=== PATIENT | male | born 1960 | race Caucasian/White ===

== ENCOUNTER 2016-08-02 12:05 | Inpatient (IN) | payer OTHER ==
[2016-08-02 13:52] VITALS: BMI 26.7
--- NOTE | 2016-08-02 14:36 | HP ---
COWS - Scale Resting Pulse: 1= [place] 81-100 Sweatin= Streaming Sweat Restless Observation: 1= Difficult to Sit Still Pupil Size: 1= Pupils >than Normal Bone or Joint Aches: 1= Mild Discomfort Runny Nose/ Eye Tearin= Nasal Congestion GI Upset > 30mins: 2= Nausea/Diarrhea Tremor Observation: 1= Tremor [place], Not Seen Yawning Observation: 1= 1-2x During Session Anxiety or Irritability: 2=Irritable/Anxious Goose Flesh Skin: 0=Smooth Skin COWS Score: 15 Admission ROS BHS - HPI Chief Complaint: I'm at the end of my rope I need help to change . Allergies/Adverse Reactions: Allergies Allergy/AdvReac Type Severity Reaction Status Date / Time No Known Allergies Allergy Verified 05/28/15 12:49 History of Present Illness: 56 y/o m pt with a h/o heroin dep. seeking detox. Exam Limitations: No Limitations - Ebola screening Have you traveled outside of the country in the last 21 days: No Have you had contact with anyone from an Ebola affected area: No Have you been sick,other than usual withdrawal symptoms: No Do you have a fever: No - Review of Systems Constitutional: Malaise, Night Sweats, Changes in sleep EENT: reports: Nose Congestion Respiratory: reports: No Symptoms reported Cardiac: reports: Chest Tightness GI: reports: Nausea : reports: Frequency Musculoskeletal: reports: Muscle Pain Integumentary: reports: No Symptoms Reported Neuro: reports: No Symptoms reported Hematology: reports: No Symptoms Reported Psychiatric: reports: Anxious, Depressed Other Systems: Reviewed and Negative Patient History - Patient Medical History Hx Anemia: No Hx Asthma: No Hx Chronic Obstructive Pulmonary Disease (COPD): No Hx Cancer: No Hx Cardiac Disorders: No Hx Congestive Heart Failure: No Hx Hypertension: No Hx Hypercholesterolemia: No Hx Pacemaker: No HX Cerebrovascular Accident: No Hx Seizures: No Hx Dementia: No Hx Diabetes: No Hx Gastrointestinal Disorders: No Hx Liver Disease: No Hx Genitourinary Disorders: No Hx Sexually Transmitted Disorders: No Hx Renal Disease (ESRD): No Hx Thyroid Disease: No Hx Human Immunodeficiency Virus (HIV): No Hx Hepatitis C: No Hx Depression: No Hx Suicide Attempt: No Hx Bipolar Disorder: No Hx Schizophrenia: No - Patient Surgical History Past Surgical History: No Hx Neurologic Surgery: No Hx Cataract Extraction: No Hx Cardiac Surgery: No Hx Lung Surgery: No Hx Breast Surgery: No Hx Breast Biopsy: No Hx Abdominal Surgery: No Hx Appendectomy: No Hx Cholecystectomy: No Hx Genitourinary Surgery: No Hx Section: No Hx Orthopedic Surgery: No Anesthesia Reaction: No - PPD History Previous Implant?: No Documented Results: Negative w/o proof Date: 05/30/15 PPD to be Administered?: Yes - Reproductive History Patient is a Female of Child Bearing Age (11 -55 yrs old): No - Smoking Cessation Smoking history: Current every day smoker Have you smoked in the past 12 months: Yes Aproximately how many cigarettes per day: 10 Cigars Per Day: 0 Hx Chewing Tobacco Use: No Initiated information on smoking cessation: Yes 'Breaking Loose' booklet given: 08/02/16 - Substance & Tx. History Hx Alcohol Use: No Hx Substance Use: Yes Substance Use Type: Heroin Hx Substance Use Treatment: Yes - Substances Abused Heroin Route: Inhalation Frequency: Daily Amount used: 7 bags/d Age of first use: 14 Date of Last Use: 08/02/16 Family Disease History - Family Disease History Family Disease History: Diabetes: Mother, [place]: Sister (BREAST), Other: Father ( RECOVERING ALCOHOLIC) Admission Physical Exam BHS - Vital Signs Vital Signs: Vital Signs - 24 hr 08/02/16 13:46 Temperature 98.2 F Pulse Rate 89 Respiratory 20 Rate Blood Pressure 143/78 56 y/o m pt aox3 anxious but cooperative with exam , - Physical General Appearance: Yes: Appropriately Dressed, Anxious HEENTM: Yes: EOMI, Normocephalic, LUCIA, Muffled/Hoarse Voice Respiratory: Yes: Chest Non-Tender, Lungs Clear, Normal Breath Sounds, No Respiratory Distress Neck: Yes: Supple, Trachea in good position Breast: Yes: Within Normal Limits Cardiology: Yes: Regular Rhythm, Regular Rate, S1, S2 Abdominal: Yes: Non Tender, Flat, Soft, Increased Bowel Sounds Genitourinary: Yes: Frequency Back: Yes: Within Normal Limits Musculoskeletal: Yes: Muscle Pain Extremities: Yes: Tremors Neurological: 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 NML intact, Fully Oriented, Alert, Motor Strength 5/5, Normal Response Integumentary: Yes: Moist Lymphatic: Yes: Within Normal Limits - Diagnostic (1) Opioid dependence with withdrawal Current Visit: Yes Status: Chronic (2) Nicotine dependence unspecified, with withdrawal Current Visit: Yes Status: Chronic Qualifiers: Nicotine product type: cigarettes Qualified Code(s): F17.213 - Nicotine dependence, cigarettes, with withdrawal Cleared for Admission [facility] - Detox or Rehab [facility] Level of Care: Medically Managed Detox Regimen/Protocol: Methadone [facility] Breath Alcohol Content Breath Alcohol Content: 0 Urine Drug Screen - Results Drug Screen Negative: No Urine Drug Screen Results: OPI-Opiates
[2016-08-02] MEDS ORDERED: LOPERAMIDE HCL 2 MG CAPSULE PO PRN (14:50)
[2016-08-02] MEDS ORDERED: MAG HYDROX/AL HYDROX/SIMETH 30 ML UNIT-DOSE CUP PO PRN (14:50)
[2016-08-02] MEDS ORDERED: MENTHOL/PHENOL 1 EACH UD MM PRN (14:50)
[2016-08-02] MEDS ORDERED: NICOTINE POLACRILEX 4 MG GUM BC PRN (14:50)
[2016-08-02] MEDS ORDERED: MAGNESIUM HYDROX 2400MG/30ML ORAL SUSPENSION 30 ML CUP PO PRN (14:50)
[2016-08-02] MEDS ORDERED: P-EPHED 60MG/TRIPROLIDI 2.5MG TABLET PO PRN (14:50)
[2016-08-02] MEDS ORDERED: guaiFENesin/D-METHORPHAN HB 10 ML UNIT-DOSE CUPS PO PRN (14:50)
[2016-08-02] MEDS ORDERED: MAGNESIUM CITRATE 300 ML BOTTLE PO PRN (14:50)
[2016-08-02] MEDS ORDERED: diphenhydrAMINE HCL 50 MG CAPSULE PO PRN (14:50)
[2016-08-02] MEDS ORDERED: METHADONE HCL 10 MG TABLET (FOR DETOX USE ONLY) PO ONE ×2 (17:00→23:00)
[2016-08-02] MEDS: diazePAM 5 MG TABLET PO PRN ×2 (17:47→22:36)
[2016-08-02] MEDS: ACETAMINOPHEN 325 MG TABLET (FP) PO PRN (20:59)
[2016-08-02] MEDS: THIAMINE HCL 100 MG TABLET (FP) PO SCH (22:33)
[2016-08-03] MEDS ORDERED: METHADONE HCL 10 MG TABLET (FOR DETOX USE ONLY) PO ONE (10:00)
[2016-08-03] MEDS: diazePAM 5 MG TABLET PO PRN ×2 (10:15→22:33)
[2016-08-03] MEDS: PRENATAL VITAMINS W/ FOLIC ACID TABLET (FP) PO SCH (10:15)
[2016-08-03] MEDS: NICOTINE 21 MG/24 HOURS TOPICAL PATCH TD SCH (10:15)
[2016-08-03 11:21] LABS: MCH 30.6 pg (25.7-33.7); MCHC 33.4 g/dl (32.0-35.9); MEAN CELL VOLUME 91.5 fl (80-96); MEAN PLT VOLUME 8.9 fl (7.5-11.1); PLATELET COUNT 352 K/MM3 (134-434); RDW 13.6 % (11.9-15.9); WHITE BLOOD COUNT 8.1 K/mm3 (4.0-10.0)
[2016-08-03 11:36] LABS: ANION GAP 5 (8-16); CO2 32 mmol/L (21-32); GLUCOSE,RANDOM 80 mg/dL (74-106); SGOT/AST 17 U/L (15-37); SGPT/ALT 22 U/L (12-78)
[2016-08-03 11:38] LABS: ALK PHOS 91 U/L (45-117); BILIRUBIN,TOTAL 0.3 mg/dL (0.2-1.0); CALCIUM 9.1 mg/dL (8.5-10.1); CREATININE 0.8 mg/dL (0.7-1.3); TOT PROT 7.2 g/dl (6.4-8.2)
--- NOTE | 2016-08-03 11:40 | PN ---
S COWS - Scale Resting Pulse: 1= [place] 81-100 Sweatin=Flushed/Facial Moisture Restless Observation: 3= Extraneous Movement Pupil Size: 1= Pupils >than Normal Bone or Joint Aches: 2= Severe Diffuse Aches Runny Nose/ Eye Tearin= Runny Nose/Eyes GI Upset > 30mins: 2= Nausea/Diarrhea Tremor Observation of Outstretched Hands: 2= Slight Tremor Visible Yawning Observation: 1= 1-2x During Session Anxiety or Irritability: 2=Irritable/Anxious Goose Flesh Skin: 0=Smooth Skin COWS Score: 18 BHS Progress Note (SOAP) Subjective: ALERT,IRRITABLE,ANXIOUS,PAIN IN THE BODY,BACK,TREMOR, Objective: 08/03/16 11:39 Vital Signs Temperature 96.8 F L 08/03/16 09:50 Pulse Rate 94 H 08/03/16 09:50 Respiratory Rate 20 08/03/16 09:50 Blood Pressure 137/86 08/03/16 09:50 O2 Sat by Pulse Oximetry (%) EKG NSR Laboratory Last Values WBC 8.1 K/mm3 (4.0-10.0) 08/03/16 06:00 RBC 4.56 M/mm3 (4.00-5.60) 08/03/16 06:00 Hgb 13.9 GM/dL (11.7-16.9) 08/03/16 06:00 Hct 41.8 % (35.4-49) 08/03/16 06:00 MCV 91.5 fl (80-96) 08/03/16 06:00 MCHC 33.4 g/dl (32.0-35.9) 08/03/16 06:00 RDW 13.6 % (11.9-15.9) 08/03/16 06:00 Plt Count 352 K/MM3 (134-434) 08/03/16 06:00 MPV 8.9 fl (7.5-11.1) 08/03/16 06:00 LABS PENDING Assessment: 08/03/16 11:40 WITHDRAWAL SYMPTOM Plan: CONTINUE DETOX
--- NOTE | 2016-08-03 12:17 | CONSULT ---
[facility] Psychiatric Consult - Data Date of interview: 08/03/16 Admission source: [facility] Identifying data: [facility] to [facility] for this 56 y/o male seeking detox treatment on for heroin dependence.Patient is single without children,domiciled,unemployed and reportedly deprived of any source of income. Substance Abuse History: - Smoking Cessation. Smoking history: Current every day smoker. Have you smoked in the past 12 months: Yes. Aproximately how many cigarettes per day: 10. Cigars Per Day: 0. Hx Chewing Tobacco Use: No. Initiated information on smoking cessation: Yes. 'Breaking Loose' booklet given : 08/02/16. - Substance & Tx. History. Hx Alcohol Use: No. Hx Substance Use: Yes. Substance Use Type: Heroin. Hx Substance Use Treatment: Yes. - Substances Abused. Heroin. Route: Inhalation. Frequency: Daily. Amount used: 7 bags/d. Age of first use: 14. Date of Last Use: 08/02/16. Confirmed by patient. Medical History: Patient denies medical problems. Psychiatric History: Patient denies. Physical/Sexual Abuse/Trauma History: No reported history of sexual abuse. Mental Status Exam - Mental Status Exam Alert and Oriented to: Time, Place, Person Cognitive Function: Good Patient Appearance: Well Groomed Mood: Hopeful, Euthymic Affect: Appropriate, Normal Range Patient Behavior: Guarded (friendly), Appropriate, Cooperative Speech Pattern: Clear Voice Loudness: Normal Thought Process: Goal Oriented Thought Disorder: Not Present Hallucinations: Denies Suicidal Ideation: Denies Homicidal Ideation: Denies Insight/Judgement: Poor Sleep: Well, Poorly, Difficulty falling asleep Appetite: Good Muscle strength/Tone: Normal Gait/Station: Normal Psychiatric Findings - Problem List ([facility] 1, 2,3) (1) Opioid dependence with withdrawal Current Visit: Yes Status: Acute (2) Nicotine dependence unspecified, with withdrawal Current Visit: Yes Status: Acute Qualifiers: Nicotine product type: cigarettes Qualified Code(s): F17.213 - Nicotine dependence, cigarettes, with withdrawal - Initial Treatment Plan Initial Treatment Plan: Psychoeducation.Detoxification.Zolpidem 5 mg po hs prn for insomnia.Side effects/benefits discussed.Patient agrees with careplan.Observation.
[2016-08-03] MEDS: IBUPROFEN 400 MG TABLET (FP) PO PRN (13:34)
[2016-08-03] MEDS: hydrOXYzine PAMOATE 25 MG CAPSULE (FP) PO PRN (13:35)
[2016-08-03 17:34] LABS: URINE APPEARANCE SLCLOUDY; URINE BILIRUBIN NEGATIVE (NEGATIVE); URINE BLOOD 1+ (NEGATIVE); URINE COLOR YELLOW; URINE GLUCOSE (UA) NEGATIVE (NEGATIVE); URINE KETONE NEGATIVE (NEGATIVE); URINE LEUK ESTERASE NEGATIVE (NEGATIVE); URINE NITRITE NEGATIVE (NEGATIVE); URINE PROTEIN NEGATIVE (NEGATIVE); URINE UROBILINOGEN NEGATIVE E.U./dl (0.2-1.0)
[2016-08-03 17:42] LABS: GRANULAR CASTS 4 /lpf; URINE HYALINE CAST 4 /lpf; URINE MUCUS FEW; URINE RBC 6 /hpf (0-3); URINE WBC 1 /hpf (3-5)
[2016-08-03] MEDS ORDERED: ZOLPIDEM TARTRATE 5 MG TABLET PO PRN (22:00)
[2016-08-03] MEDS: THIAMINE HCL 100 MG TABLET (FP) PO SCH (22:30)
[2016-08-04] MEDS: diazePAM 5 MG TABLET PO PRN ×4 (05:54→22:40)
[2016-08-04] MEDS ORDERED: METHADONE HCL 5 MG TABLET (FOR DETOX USE ONLY) PO ONE (10:00)
[2016-08-04] MEDS: PRENATAL VITAMINS W/ FOLIC ACID TABLET (FP) PO SCH (10:53)
[2016-08-04] MEDS: NICOTINE 21 MG/24 HOURS TOPICAL PATCH TD SCH (10:53)
--- NOTE | 2016-08-04 10:54 | PN ---
BHS COWS - Scale Resting Pulse: 1= [place] 81-100 Sweatin=Flushed/Facial Moisture Restless Observation: 1= Difficult to Sit Still Pupil Size: 0= Normal to Room Light Bone or Joint Aches: 1= Mild Discomfort Runny Nose/ Eye Tearin= Runny Nose/Eyes GI Upset > 30mins: 2= Nausea/Diarrhea Tremor Observation of Outstretched Hands: 2= Slight Tremor Visible Yawning Observation: 1= 1-2x During Session Anxiety or Irritability: 2=Irritable/Anxious Goose Flesh Skin: 0=Smooth Skin COWS Score: 14 BHS Progress Note (SOAP) Subjective: ANXIETY,TREMORS,SWEATING,INTERRUPTED SLEEP,RESTLESS. Objective: 08/04/16 10:53 Vital Signs - 8 hr 08/04/16 08/04/16 06:33 09:49 Temperature 98.4 F 98.4 F Pulse Rate 86 91 H Respiratory 18 18 Rate Blood Pressure 166/90 165/86 Laboratory Last Values WBC 8.1 K/mm3 (4.0-10.0) 08/03/16 06:00 RBC 4.56 M/mm3 (4.00-5.60) 08/03/16 06:00 Hgb 13.9 GM/dL (11.7-16.9) 08/03/16 06:00 Hct 41.8 % (35.4-49) 08/03/16 06:00 MCV 91.5 fl (80-96) 08/03/16 06:00 MCHC 33.4 g/dl (32.0-35.9) 08/03/16 06:00 RDW 13.6 % (11.9-15.9) 08/03/16 06:00 Plt Count 352 K/MM3 (134-434) 08/03/16 06:00 MPV 8.9 fl (7.5-11.1) 08/03/16 06:00 Sodium 135 mmol/L (136-145) L 08/03/16 06:00 Potassium 3.8 mmol/L (3.5-5.1) 08/03/16 06:00 Chloride 98 mmol/L (98-107) 08/03/16 06:00 Carbon Dioxide 32 mmol/L (21-32) D 08/03/16 06:00 Anion Gap 5 (8-16) L 08/03/16 06:00 BUN 10 mg/dL (7-18) 08/03/16 06:00 Creatinine 0.8 mg/dL (0.7-1.3) 08/03/16 06:00 Creat Clearance w eGFR > 60 (>60) 08/03/16 06:00 Random Glucose 80 mg/dL (74-106) 08/03/16 06:00 Calcium 9.1 mg/dL (8.5-10.1) 08/03/16 06:00 Total Bilirubin 0.3 mg/dL (0.2-1.0) D 08/03/16 06:00 AST 17 U/L (15-37) D 08/03/16 06:00 ALT 22 U/L (12-78) D 08/03/16 06:00 Alkaline Phosphatase 91 U/L (45-117) 08/03/16 06:00 Total Protein 7.2 g/dl (6.4-8.2) 08/03/16 06:00 Albumin 4.0 g/dl (3.4-5.0) 08/03/16 06:00 Urine Color Yellow 08/03/16 16:45 Urine Appearance Slcloudy 08/03/16 16:45 Urine pH 5.0 (5.0-8.0) D 08/03/16 16:45 Ur Specific [place] 1.024 (1.001-1.035) 08/03/16 16:45 Urine Protein Negative (NEGATIVE) 08/03/16 16:45 Urine Glucose (UA) Negative (NEGATIVE) 08/03/16 16:45 Urine Ketones Negative (NEGATIVE) 08/03/16 16:45 Urine Blood 1+ (NEGATIVE) H 08/03/16 16:45 Urine Nitrite Negative (NEGATIVE) 08/03/16 16:45 Urine Bilirubin Negative (NEGATIVE) 08/03/16 16:45 Urine Urobilinogen Negative E.U./dl (0.2-1.0) 08/03/16 16:45 Ur Leukocyte Esterase Negative (NEGATIVE) 08/03/16 16:45 Urine RBC 6 /hpf (0-3) 08/03/16 16:45 Urine WBC 1 /hpf (3-5) 08/03/16 16:45 Hyaline Casts 4 /lpf 08/03/16 16:45 Granular Casts 4 /lpf 08/03/16 16:45 Urine Mucus Few 08/03/16 16:45 RPR Titer Nonreactive (NONREACTIVE) 08/03/16 06:00 LABS NOTED Assessment: 08/04/16 10:53 WITHDRAWAL SX. Plan: CONTINUE DETOX
[2016-08-04] MEDS: IBUPROFEN 400 MG TABLET (FP) PO PRN (12:33)
[2016-08-04] MEDS: hydrOXYzine PAMOATE 25 MG CAPSULE (FP) PO PRN (12:34)
[2016-08-04] MEDS: THIAMINE HCL 100 MG TABLET (FP) PO SCH (22:38)
[2016-08-04] MEDS: ACETAMINOPHEN 325 MG TABLET (FP) PO PRN (22:41)
[2016-08-05] MEDS: diazePAM 5 MG TABLET PO PRN ×2 (05:53→10:50)
[2016-08-05] MEDS: IBUPROFEN 400 MG TABLET (FP) PO PRN (05:53)
--- NOTE | 2016-08-05 09:27 | PN ---
BHS Progress Note (SOAP) Subjective: SWEATING,INTERRUPTED SLEEP,RESTLESS Objective: 08/05/16 09:27 Laboratory Last Values WBC 8.1 K/mm3 (4.0-10.0) 08/03/16 06:00 RBC 4.56 M/mm3 (4.00-5.60) 08/03/16 06:00 Hgb 13.9 GM/dL (11.7-16.9) 08/03/16 06:00 Hct 41.8 % (35.4-49) 08/03/16 06:00 MCV 91.5 fl (80-96) 08/03/16 06:00 MCHC 33.4 g/dl (32.0-35.9) 08/03/16 06:00 RDW 13.6 % (11.9-15.9) 08/03/16 06:00 Plt Count 352 K/MM3 (134-434) 08/03/16 06:00 MPV 8.9 fl (7.5-11.1) 08/03/16 06:00 Sodium 135 mmol/L (136-145) L 08/03/16 06:00 Potassium 3.8 mmol/L (3.5-5.1) 08/03/16 06:00 Chloride 98 mmol/L (98-107) 08/03/16 06:00 Carbon Dioxide 32 mmol/L (21-32) D 08/03/16 06:00 Anion Gap 5 (8-16) L 08/03/16 06:00 BUN 10 mg/dL (7-18) 08/03/16 06:00 Creatinine 0.8 mg/dL (0.7-1.3) 08/03/16 06:00 Creat Clearance w eGFR > 60 (>60) 08/03/16 06:00 Random Glucose 80 mg/dL (74-106) 08/03/16 06:00 Calcium 9.1 mg/dL (8.5-10.1) 08/03/16 06:00 Total Bilirubin 0.3 mg/dL (0.2-1.0) D 08/03/16 06:00 AST 17 U/L (15-37) D 08/03/16 06:00 ALT 22 U/L (12-78) D 08/03/16 06:00 Alkaline Phosphatase 91 U/L (45-117) 08/03/16 06:00 Total Protein 7.2 g/dl (6.4-8.2) 08/03/16 06:00 Albumin 4.0 g/dl (3.4-5.0) 08/03/16 06:00 Urine Color Yellow 08/03/16 16:45 Urine Appearance Slcloudy 08/03/16 16:45 Urine pH 5.0 (5.0-8.0) D 08/03/16 16:45 Ur Specific [place] 1.024 (1.001-1.035) 08/03/16 16:45 Urine Protein Negative (NEGATIVE) 08/03/16 16:45 Urine Glucose (UA) Negative (NEGATIVE) 08/03/16 16:45 Urine Ketones Negative (NEGATIVE) 08/03/16 16:45 Urine Blood 1+ (NEGATIVE) H 08/03/16 16:45 Urine Nitrite Negative (NEGATIVE) 08/03/16 16:45 Urine Bilirubin Negative (NEGATIVE) 08/03/16 16:45 Urine Urobilinogen Negative E.U./dl (0.2-1.0) 08/03/16 16:45 Ur Leukocyte Esterase Negative (NEGATIVE) 08/03/16 16:45 Urine RBC 6 /hpf (0-3) 08/03/16 16:45 Urine WBC 1 /hpf (3-5) 08/03/16 16:45 Hyaline Casts 4 /lpf 08/03/16 16:45 Granular Casts 4 /lpf 08/03/16 16:45 Urine Mucus Few 08/03/16 16:45 RPR Titer Nonreactive (NONREACTIVE) 08/03/16 06:00 Vital Signs - 8 hr 08/05/16 06:19 Temperature 97.8 F Pulse Rate 101 H Respiratory 18 Rate Blood Pressure 115/74 Assessment: 08/05/16 09:27 WITHDRAWAL SX. Plan: CONTINUE DETOX
[2016-08-05] MEDS ORDERED: METHADONE HCL 5 MG TABLET (FOR DETOX USE ONLY) PO ONE (10:00)
[2016-08-05] MEDS: PRENATAL VITAMINS W/ FOLIC ACID TABLET (FP) PO SCH (10:50)
[2016-08-05] MEDS: NICOTINE 21 MG/24 HOURS TOPICAL PATCH TD SCH (10:50)
[2016-08-05] MEDS: THIAMINE HCL 100 MG TABLET (FP) PO SCH (22:28)
[2016-08-05] MEDS: CYCLOBENZAPRINE HCL 10 MG TABLET (FP) PO PRN (22:28)
[2016-08-06] MEDS: IBUPROFEN 400 MG TABLET (FP) PO PRN ×2 (05:41→15:04)
[2016-08-06] MEDS ORDERED: METHADONE HCL 10 MG TABLET (FOR DETOX USE ONLY) PO ONE (10:00)
[2016-08-06] MEDS: PRENATAL VITAMINS W/ FOLIC ACID TABLET (FP) PO SCH (10:33)
[2016-08-06] MEDS: NICOTINE 21 MG/24 HOURS TOPICAL PATCH TD SCH (10:34)
--- NOTE | 2016-08-06 21:16 | PN ---
[id number] Vital Signs - 8 hr 08/06/16 08/06/16 15:00 20:14 Temperature 97.7 F 96.3 F L Pulse Rate 86 90 Respiratory 20 16 Rate Blood Pressure 112/74 134/83 Assessment: 08/06/16 21:15 withdrawal sx Plan: continue detox
[2016-08-06] MEDS: THIAMINE HCL 100 MG TABLET (FP) PO SCH (22:35)
[2016-08-07] MEDS ORDERED: METHADONE HCL 5 MG TABLET (FOR DETOX USE ONLY) PO ONE (06:00)
[2016-08-07] MEDS: CYCLOBENZAPRINE HCL 10 MG TABLET (FP) PO PRN (06:20)
[2016-08-07 06:25] VITALS: BP 114/75; PULSE 85; TEMP 96.8
--- NOTE | 2016-08-07 12:14 | DS ---
[facility] Detox Discharge Summary Admission Date: 08/02/16 Discharge Date: 08/07/16 - History Present History: Opioid Dependence Pertinent Past History: Denies - Physical Exam Results Vital Signs: Vital Signs Temperature 96.8 F L 08/07/16 06:25 Pulse Rate 85 08/07/16 06:25 Respiratory Rate 16 08/07/16 06:25 Blood Pressure 114/75 08/07/16 06:25 O2 Sat by Pulse Oximetry (%) Pertinent Admission Physical Exam Findings: Withdrawal symptoms Laboratory Tests 08/03/16 08/03/16 08/03/16 06:00 06:00 06:00 WBC 8.1 RBC 4.56 Hgb 13.9 Hct 41.8 MCV 91.5 MCHC 33.4 RDW 13.6 Plt Count 352 MPV 8.9 Sodium 135 L Potassium 3.8 Chloride 98 Carbon Dioxide 32 D Anion Gap 5 L BUN 10 Creatinine 0.8 Creat Clearance w eGFR > 60 Random Glucose 80 Calcium 9.1 Total Bilirubin 0.3 D AST 17 D ALT 22 D Alkaline Phosphatase 91 Total Protein 7.2 Albumin 4.0 Urine Color Urine Appearance Urine pH Ur Specific [place] Urine Protein Urine Glucose (UA) Urine Ketones Urine Blood Urine Nitrite Urine Bilirubin Urine Urobilinogen Ur Leukocyte Esterase Urine RBC Urine WBC Hyaline Casts Granular Casts Urine Mucus RPR Titer Nonreactive 08/03/16 16:45 WBC RBC Hgb Hct MCV MCHC RDW Plt Count MPV Sodium Potassium Chloride Carbon Dioxide Anion Gap BUN Creatinine Creat Clearance w eGFR Random Glucose Calcium Total Bilirubin AST ALT Alkaline Phosphatase Total Protein Albumin Urine Color Yellow Urine Appearance Slcloudy Urine pH 5.0 D Ur Specific [place] 1.024 Urine Protein Negative Urine Glucose (UA) Negative Urine Ketones Negative Urine Blood 1+ H Urine Nitrite Negative Urine Bilirubin Negative Urine Urobilinogen Negative Ur Leukocyte Esterase Negative Urine RBC 6 Urine WBC 1 Hyaline Casts 4 Granular Casts 4 Urine Mucus Few RPR Titer Labs noted - Treatment Hospital Course: Detox Protocol Followed, Detoxed Safely, Responded well, Discharged Condition Good - Medication Discharge Medications: Ambulatory Orders NK [No Known Home Medication] 05/28/15 - Diagnosis (1) Opioid dependence with withdrawal Status: Acute - AMA Did Patient Leave Against Medical Advice: No
== END 2016-08-07 09:20 | disposition home or self-care (01) | DRG 773 ==
LOC: YASAS 12:05 → Y3N 16:49
PROVIDERS: ADMIT Internal Medicine; ATTEND Internal Medicine
PROC: HZ2ZZZZ Detoxification Services for Substance Abuse Treatment (ICD-10-PCS; principal; 2016-08-02)
DX: F11.23 Opioid dependence with withdrawal (principal); F17.213 Nicotine dependence, cigarettes, with withdrawal
CPT/HCPCS: 36415; 80053; 81003; 81015; 85027; 86593; 93005; 93010